=== PATIENT | female | born 1960 | race African-American/Black ===

== ENCOUNTER 2016-11-20 14:01 | Emergency (ER) | payer BC ==
--- NOTE | ~2016-11-20 | EKG ---
PATIENT: SAMEERA ADAMES UNIT #: [id number] Ventricular Rate: 55 BPM Atrial Rate: 55 BPM P-R Interval: 180 ms QRS Duration: 76 ms Q-T Interval: 450 ms QTC Calculation(Bezet): 430 ms P [place]: 34 degrees Calculated R [place]: -2 degrees Calculated T [place]: 9 degrees Diagnosis Line: Sinus bradycardia Diagnosis Line: Minimal voltage criteria for LVH, may be normal Diagnosis Line: variant Diagnosis Line: Borderline ECG Diagnosis Line: No previous ECGs available Diagnosis Line: Confirmed by LYNNETTE BALDWIN MD ([id number]) on 11/20/2016 Diagnosis Line: 8:43:11 PM INTERPRETING MD: DENNY JIMÉNEZ
[~2016-11-20 14:01] MED LIST: CLARITIN10 MG; DARVOCET-N 1001 TAB PO; DIAZEPAM PO; FLEXERIL PO; FLEXERIL10 MG PO; PHENERGAN PO; ULTRAM PO; VICODIN 5/500 T1 TAB PO; VOLTAREN75 MG PO; ZOFRANODT PO
[2016-11-20 15:20] LABS: BASOPHIL% 0.4 % (0-2.5); EOSINOPHIL# 0.1 X10e3 (0-0.7); EOSINOPHIL% 0.6 % (0.0-7.0); HEMATOCRIT 40.1 % (35.0-45.0); HEMOGLOBIN 13.9 gm/dL (12.0-16.0); LYMPHOCYTE# 1.7 X10e3 (1.0-3.5); LYMPHOCYTE% 17.9 % (17.0-45.0); MEAN CELL VOLUME 87.9 FL (83-96); MEAN CORPUSCULAR HEMOGLOBIN 30.5 PG (28-34); MEAN CORPUSCULAR HGB CONC 34.7 g/dL (30-36); MEAN PLATELET VOLUME 9.8 FL (6.5-11.5); MONOCYTE# 0.4 X10e3 (0-1.0); NEUTROPHIL# 7.5 X10e3 (1.5-7.1); NEUTROPHIL% 77.1 % (40-75); PLATELET COUNT 216 X10e3 (140-420); RED BLOOD COUNT 4.56 X10e (3.90-5.30); RED CELL DISTRIBUTION WIDTH 13.4 % (11.0-15.5); WHITE BLOOD COUNT 9.7 X10e3 (4.0-10.5)
[2016-11-20 15:23] LABS: DIFF IND NO
[2016-11-20 15:33] LABS: URINE SOURCE CLEAN CATCH
[2016-11-20 15:44] LABS: ALBUMIN SERUM 4.2 g/dL (3.5-5.0); BILIRUBIN, DIRECT 0.1 mg/dL (0.0-0.2); BILIRUBIN,INDIRECT 0.9 mg/dL (0.0-0.9); BUN/CREATININE RATIO 12.85; CALCIUM SERUM 9.2 mg/dL (8.4-10.2); CREATININE SERUM 0.7 mg/dL (0.6-1.4); POTASSIUM 3.9 mmol/L (3.5-5.1); PROTEIN TOTAL SERUM 8.3 g/dL (6.0-8.3)
[2016-11-20 15:44] LABS: URINE APPEARANCE CLEAR; URINE BILIRUBIN NEG (NEG); URINE BLOOD NEG (NEG); URINE COLOR YELLOW; URINE GLUCOSE NEG (NEG); URINE KETONE NEG (NEG); URINE LEUKOCYTE ESTERASE NEG (NEG); URINE NITRATE NEG (NEG); URINE PROTEIN NEG (NEG); URINE SPECIFIC GRAVITY 1.003 (1.003-1.035); URINE UROBILINOGEN 0.2 MG/DL (NEG)
[2016-11-20 16:09] LABS: CULTURE INDICATED? NO
[2016-11-20 16:58] LABS: POC - CKMB 1.4 ng/mL (0.0-7.9); POC - TROPONIN <0.05 ng/mL (<=0.05)
== END 2016-11-20 17:40 | disposition home or self-care (01) ==
LOC: CED 14:01
PROVIDERS: Emergency Medicine
DX: R42 Dizziness and giddiness (principal); Z21 Asymptomatic human immunodeficiency virus [HIV] infection status; F17.210 Nicotine dependence, cigarettes, uncomplicated
CPT/HCPCS: 36415; 80048; 80076; 81003; 82553; 82947; 84484; 85025; 93005; 96360; 99284